=== PATIENT | female | born 1995 | race Caucasian/White ===

== ENCOUNTER 2019-08-06 12:00 | Emergency (ER) | payer OTHER ==
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
[2019-08-06] MEDS ORDERED: Acetaminophen/HYDROcodone 325-5 MG Tab PO ONE (15:46)
[2019-08-06] MEDS ORDERED: Lidocaine 1% 10 ML MDV INJECT ONE (17:19)
== END 2019-08-06 18:21 | disposition home or self-care (01) ==
LOC: MW.ED 12:00
DX: S31.41XA Laceration without foreign body of vagina and vulva, initial encounter (principal); T76.21XA Adult sexual abuse, suspected, initial encounter; X58.XXXA Exposure to other specified factors, initial encounter
CPT/HCPCS: 12002; 99283; A9270; J2001

== ENCOUNTER 2024-07-14 11:15 | Day surgery (SDC) | payer OTHER ==
[2024-07-14] MEDS ORDERED: Sodium Chloride 0.9% 2.5 ML Syringe FLUSH PRN (11:46)
[2024-07-14] MEDS ORDERED: Sodium Chloride 0.9% 10 ML Syringe FLUSH PRN (11:46)
[2024-07-14] MEDS ORDERED: Sodium Chloride 0.9% 20 ML SDV IV PRN (11:46)
[2024-07-14] MEDS: Glucagon,Human Recombinant 1 MG Vial IVPUSH ONE (12:17)
[2024-07-14] MEDS: Lidocaine 2% Viscous Solution 15 ML UD PO ONE (12:17)
[2024-07-14 12:56] LABS: BASOPHILS ABSOLUTE AUTO 0.04 K/uL (0.00-0.20); BASOPHILS PERCENT AUTO 0.7 % (0.0-1.0); EOSINOPHILS ABSOLUTE AUTO 0.01 K/uL (0.00-0.45); EOSINOPHILS PERCENT AUTO 0.2 % (0.0-6.0); HEMATOCRIT 39.9 % (37.0-47.0); HEMOGLOBIN 13.9 g/dL (12.0-16.0); LYMPHOCYTES ABSOLUTE AUTO 1.87 K/uL (1.00-4.80); MEAN CORPUSCULAR HEMOGLOBIN 30.8 pg (28.0-32.0); MEAN CORPUSCULAR HGB CONC 34.8 g/dL (32.0-36.0); MEAN CORPUSCULAR VOLUME 88.3 fL (83.0-99.0); MEAN PLATELET VOLUME 12.2 fL (9.4-12.3); MONOCYTES PERCENT AUTO 5.5 % (0.0-8.0); NEUTROPHILS ABSOLUTE AUTO 3.28 K/uL (1.80-7.70); NEUTROPHILS PERCENT AUTO 59.6 % (41.0-71.0); PLATELET COUNT,PLT 145 K/uL (150-400); RED BLOOD CELL COUNT 4.52 M/uL (4.10-5.30)
[2024-07-14 13:11] LABS: A/G RATIO 1.4 (0.9-1.6); ALBUMIN 4.5 g/dL (3.4-5.0); BILIRUBIN TOTAL 1.1 mg/dL (0.2-1.0); CALCIUM 9.3 mg/dL (8.5-10.1); CARBON DIOXIDE,CO2 26.3 mmol/L (21.0-32.0); CREATININE 0.7 mg/dL (0.6-1.0); EST CRCL DRUG DOSING (CG) 132.54 mL/min; PROTEIN TOTAL,TP 7.8 g/dL (6.4-8.2)
[2024-07-14] MEDS ORDERED: propofoL 500 MG/50 ML 50 ML ONE (14:53)
[2024-07-14] MEDS ORDERED: dexmedeTOMIDine HCl 200 MCG/2 ML SDV ONE (14:54)
[2024-07-14] MEDS ORDERED: Sodium Chloride 0.9% 20 ML ONE (14:54)
[2024-07-14] MEDS ORDERED: Lactated Ringers 1,000 ML IV SCH (15:45)
== END 2024-07-14 17:14 | disposition home or self-care (01) ==
LOC: MW.ED 11:15 → MW.SDS 14:42
PROVIDERS: ATTEND Surgery
DX: R13.10 Dysphagia, unspecified (principal)
CPT/HCPCS: 36415; 43239; 80053; 84703; 85025; 96374; 99284; A9270; J1610; J2704; 00731; 99283; J3490